=== PATIENT | female | born 1980 | race Two or more races ===

== ENCOUNTER 2019-10-20 10:30 | Inpatient (IN) | payer OTHER ==
[2019-10-20 12:18] VITALS: BMI 29.0
[2019-10-20] MEDS ORDERED: ELECTROLYTE-148 SOLN 500 ML IV ONE (14:25)
[2019-10-20] MEDS ORDERED: CITRIC ACID/SODIUM CITRATE 30 ML UNIT-DOSE CUP PO ONE (14:25)
[2019-10-20] MEDS ORDERED: ELECTROLYTE-148 SOLN 1,000 ML IV SCH (14:30)
--- NOTE | 2019-10-20 14:31 | HP ---
Past Medical History - Admission Chief Complaint: PRIMATY LT C S History of Present Illness: none History Source: Patient Limitations to Obtaining History: No Limitations - Past Medical History FLIGHT AGENT: No: Alzheimer's, CVA, Dementia, Migraine, Multiple Sclerosis, Peripheral Neuropathy, Parkinson's, Seizure, Syncope, TIA, Vertigo, Other Cardiovascular: No: AFIB, Aneurysm, Aortic Insufficiency, Aortic Stenosis, CAD, CHF, Deep Vein Thrombosis, HTN, Hyperlipdemia, ID, Mitral Insufficiency, Mitral Stenosis, Murmur, Pulmonary Hypertension, Other Pulmonary: No: Asthma, Bronchitis, Cancer, COPD, O2 Dependent, Pneumonia, Previously Intubated, Pulmonary Embolus, Pulmonary Fibrosis, Sleep Apnea, Other Gastrointestinal: No: Ascites, Cancer, Constipation, Crohn's Disease, Diverticulitis, Diverticulosis, Esophageal Varices, Gastritis, GERD, GI Bleed, Hemorrhoids, Hiatal Hernia, Inflamatory Bowel Disease, Irritable Bowel Disease, Pancreatitis, Peptic Ulcer Disease, Ulcerative Colitis, Other Hepatobiliary: No: Cirrhosis, Cholelithiasis, Cholecystitis, Choledocholithiasis, Hepatitis A, Hepatitis B, Hepatitis C, Other Renal/: No: Renal Failure, Renal Inusuff, BPH, Cancer, Hematuria, Hemodialysis, Neurogenic Bladder, Renal Calculi, UTI, Other Reproductive: No: Ectopic , Endometriosis, Fibroids, PID, Polycystic Ovary Syndrome, Postmenopausal, Other ...: 1 ...Para: 0 ...Term: 0 ...: 0 ...Spon : 0 ...Induced : 0 ...Living Children: 0 ...Multiple Gestation: 0 ...EDC by Reinier: 10/23/19 Heme/Onc: No: Anemia, B12 Deficiency, Bleeding Disorder, Cancer, Current Chemoth erapy, Current Radiation Therapy, Hemochromatosis, Hypercoaguable State, Myeloproliferative Synd, Sickle Cell Disease, Sickle Cell Trait, Thrombocytopenia, Other Infectious Disease: No: AIDS, C-Diff, Herpes Zoster, HIV, MRSA, STD's, Tuberculosis, VREF, Other Psych: No: Addictions, Anxiety, Bipolar, Depression, Panic, Psychosis, Schizophrenia, Other Musculoskeletal: No: Bursitis, Chronic low back pain, Hemiparesis, Hemiplegia, Osteoarthritis, Paraplegia, Other Rheumatology: No: Fibromyalgia, Gout, Lupus, Rheumatoid Arthritis, Sarcoidosis, Vasculitis, Other ENT: No: Allergic Rhinitis, Sinusitis, Other Endocrine: No: Gregory's Disease, Yessica's Disease, Diabetes Insipidus, Diabetes Mellitus, Hyperparathyroidism, Hyperthyroidism, Hypothyroidism, Osteopenia, SIADH, Other Dermatology: No: Basal Cell, Cellulitis, Eczema, Melanoma, Psoriasis, Squamous Cell, Other - Past Surgical History Past Surgical History: No: None, AAA Repair, AICD, Amputation, Appendectomy, Arthrosocopy, AV Fistula/Graft, Bariatric Surgery, Breast Biopsy, Bypass, CABG, Carotid Endarterectomy, Cataract Removal, Cholecystectomy, Colectomy, Colonoscopy, Colostomy, Craniotomy, , Cystectomy, Hernia Repair, Hysterectomy, Ileal Conduit, Ileosotomy, Joint Replacement, Kidney Transplant, Laminectomy, Liver Transplant, Mastectomy, Nephrectomy, Oopherectomy, Orchiectomy, Permanent Pacemaker, Prostatectomy, Splenectomy, Stent, Thoracotomy, TURP, Tonsillectomy, Tubal Ligation, Upper Endoscopy, Valve Replacement, Vasectomy, Vein Stripping/Ligation Hx Myomectomy: No Hx Transabdominal Cerclage: No - Advance Directives Advance Directives: Yes: Living Will - Smoking History Smoking history: Never smoked Have you smoked in the past 12 months: No - Alcohol/Substance Use Hx Alcohol Use: No History of Substance Use: reports: None - Social History Usual Living Arrangement: Yes: With Significant Other Do you think of yourself as: Straight/Heterosexual ADL: Independent History of Recent Travel: No Home Medications - Allergies Allergies/Adverse Reactions: Allergies Allergy/AdvReac Type Severity Reaction Status Date / Time No Known Allergies Allergy Verified 10/20/19 11:30 - Home Medications Home Medications: Ambulatory Orders Pnv No.95/Ferrous Fum/Folic AC [ Formula] 1 each PO DAILY 10/20/19 Family Medical History Family History: Denies Review of Systems - Review of Systems Constitutional: reports: No Symptoms Eyes: reports: No Symptoms HENT: reports: No Symptoms Neck: reports: No Symptoms Cardiovascular: reports: No Symptoms Respiratory: reports: No Symptoms Gastrointestinal: reports: No Symptoms Genitourinary: reports: No Symptoms Breasts: reports: No Symptoms Reported Musculoskeletal: reports: No Symptoms Integumentary: reports: No Symptoms Neurological: reports: No Symptoms Endocrine: reports: No Symptoms Hematology/Lymphatic: reports: No Symptoms Psychiatric: reports: No Symptoms Physical Exam - Maternity Vital Signs: Vital Signs Temperature 98.1 F 10/20/19 11:30 Pulse Rate 87 10/20/19 11:30 Respiratory Rate 18 10/20/19 11:30 Blood Pressure 112/77 10/20/19 11:30 O2 Sat by Pulse Oximetry (%) 96 10/20/19 10:30 Constitutional: Yes: Well Nourished, No Distress, Calm Eyes: Yes: WNL, Conjunctiva Clear, EOM Intact HENT: Yes: WNL, Atraumatic, Normocephalic Neck: Yes: WNL, Supple, Trachea Midline Cardiovascular: Yes: WNL, Regular Rate and Rhythm Lungs: Clear to auscultation Breast(s): Yes: WNL - Abdominal Exam/OB Number of Fetuses: Single Presentation: Vertex Contractions: Yes Regularity: Irregular Intensity: Mild Monitor Mode: External Heart Rate (range): 150 Heart Rate Location: [facility] Category: I Accelerations: Uniform Decelerations: None - Vaginal Exam/OB Vaginal Bleeding: No Speculum Exam: No Dilatation (cm): 1 Effacement (%): 60 Amniotic Membrane Status: Intact Amniotic Fluid: Yes: Clear Presentation: Vertex/Position Station: -2 - Physical Exam Musculoskeletal: Yes: WNL Extremities: Yes: WNL Edema: Yes Edema: LUE: 1+, RUE: 1+, LLE: 1+, RLE: 1+ Integumentary: Yes: WNL Deep Tendon Reflex Grade: Normal +2 ...Motor Strength: WNL Psychiatric: Yes: WNL, Alert, Oriented Hemorrhage Risk Assessment - Risk Factors Medium Risk Factors: Yes: None High Risk Factors: Yes: None Risk Score: 1 Risk Level: Medium Risk Assessment/Plan for primary lt c s , low lyning placenta
[2019-10-20] MEDS ORDERED: morphine SULFATE/PF 0.5 MG/ML (2cc Syringe - QUVA) ONE (14:38)
[2019-10-20] MEDS ORDERED: DEXAMETHASONE SOD PHOSPHATE 4 MG/1 ML VIAL ONE (14:38)
[2019-10-20] MEDS ORDERED: ceFAZolin SODIUM 1 GM VIAL ONE (14:38)
[2019-10-20] MEDS ORDERED: PHENYLEPHRINE HCL 10 MG/1 ML SINGLE DOSE VIAL ONE (14:41)
[2019-10-20] MEDS ORDERED: OXYTOCIN 10 UNITS/ML VIAL ONE (15:07)
[2019-10-20] MEDS ORDERED: MIDAZOLAM HCL 2 MG/2 ML SINGLE DOSE VIAL ONE (15:19)
[2019-10-20] MEDS ORDERED: KETOROLAC TROMETHAMINE 30 MG/1 ML VIAL ONE (15:27)
[2019-10-20] MEDS ORDERED: ONDANSETRON 4 MG/2 ML VIAL IVPUSH PRN (15:37)
[2019-10-20] MEDS ORDERED: ACETAMINOPHEN 1000 MG/100 ML VIAL (NON FORMULARY) IVPB PRN (15:38)
[2019-10-20] MEDS ORDERED: METHYLERGONOVINE MALEATE 0.2 MG/1 ML AMP IM PRN (16:02)
[2019-10-20] MEDS ORDERED: IBUPROFEN 800 MG/8 ML IJ IVPB PRN (16:02)
[2019-10-20] MEDS ORDERED: oxyCODONE HCL 5 MG TABLET PO PRN ×2 (16:02)
--- NOTE | 2019-10-20 16:08 | OP ---
Operative Note - Note: Operative Date: 10/20/19 Pre-Operative Diagnosis: low lying placenta , anterior Operation: primary lt c s Findings: anterior placenta Post-Operative Diagnosis: Same as Pre-op Surgeon: Toro Mcleod Telesales Manager: Shaheed Degroot Anesthesiologist/[employer] TEACHER: Kaci Aiken Anesthesia: Spinal Estimated Blood Loss (mls): 800 (no complications ) Operative Report Dictated: Yes
[2019-10-20] MEDS ORDERED: ACETAMINOPHEN INJECTION 100 ML IVPB ONE (16:41)
[2019-10-20] MEDS ORDERED: OXYTOCIN 20 UNITS in 0.9% NS 20 UNIT/1,000 ML INFUS.BAG IV ONE (16:41)
[2019-10-20] MEDS: OXYTOCIN 20 UNITS in 0.9% NS 20 UNIT/1,000 ML INFUS.BAG IV SCH ×2 (16:45→21:51)
--- NOTE | 2019-10-20 18:13 | OP ---
DATE OF OPERATION: 10/20/2019 PREOPERATIVE DIAGNOSIS: Low-lying placenta. POSTOPERATIVE DIAGNOSIS: Anterior low-lying placenta. PROCEDURE: Primary low transverse section. SURGEON: Toro Mcleod MD PROOF COINS INSPECTOR: OTTO Hernandez ANESTHESIOLOGIST: MALI Nettles ANESTHESIA: Spinal. INDICATION: This is a 39-year-old female patient with history of a low-lying placenta. Patient's baby was in a breech presentation throughout the whole until about 2 to 3 weeks ago, and the low-lying placenta still did not improve. Patient was explained fully, and the patient understood and did not want any complications with vaginal bleeding during the delivery time; so, patient chose to have a primary low transverse section. All the risks, benefits, and alternatives explained to the patient. DESCRIPTION OF PROCEDURE: Patient was taken to the OR, placed on the operating table in supine position. After spinal anesthesia was obtained, the patient's abdomen and pelvis were prepped and draped in the usual sterile manner. Pfannenstiel incision was made. Incision was made through skin and subcutaneous tissue until the fascia was nicked in the midline. The fascia extended bilaterally. Intraperitoneal cavity was entered. Bladder flap was created. Low-transverse segment of the uterus was entered. Baby was delivered from the LOT position. Anterior placenta was then encountered. When the placenta was removed encountered. So, baby delivered from the LOT position. Then, the umbilical cord doubly clamped and cut. Placenta was removed. Uterus closed in single layer, first layer interlocking Vicryl sutures. Good hemostasis. Both gutters cleaned. Both ovaries, fallopian tubes, and uterus were within normal limits. No complications. Draining clear urine. Blood loss about 800 mL. Patient tolerated the procedure well, transferred to recovery room in stable condition. MD NATHANIEL ROMAN/[id number]
[2019-10-21] MEDS: OXYTOCIN 20 UNITS in 0.9% NS 20 UNIT/1,000 ML INFUS.BAG IV SCH (05:43)
[2019-10-21 09:18] LABS: BASO % 0.2 % (0-2.0); EOS % 0.1 % (0-4.5); HEMATOCRIT 33.4 % (32.4-45.2); HEMOGLOBIN 11.4 GM/dL (10.7-15.3); MCH 35.2 pg (25.7-33.7); MCHC 34.3 g/dl (32.0-36.0); MEAN CELL VOLUME 102.8 fl (80-96); MONO % 3.3 % (3.8-10.2); NEUT % 87.4 % (42.8-82.8); PLATELET COUNT 203 K/MM3 (134-434); RBC 3.25 M/mm3 (3.60-5.2); RDW 13.4 % (11.6-15.6); WHITE BLOOD COUNT 12.5 K/mm3 (4.0-10.0)
[2019-10-21] MEDS ORDERED: BISACODYL 10 MG SUPP.RECT RC PRN (16:02)
[2019-10-21] MEDS: ACETAMINOPHEN 325 MG TABLET (FP) PO PRN ×2 (16:23→21:43)
[2019-10-21] MEDS: IBUPROFEN 600 MG TABLET (FP) PO PRN ×2 (16:24→21:42)
[2019-10-21] MEDS: SIMETHICONE 80 MG TAB.CHEW (FP) PO PRN (16:25)
--- NOTE | 2019-10-21 20:37 | PN ---
Post Progress Note Post Day: 1 Type of Delivery: Primary C/S Vital Signs: Vital Signs Temperature 98.1 F 10/21/19 14:00 Pulse Rate 89 10/21/19 14:00 Respiratory Rate 20 10/21/19 16:00 Blood Pressure 101/61 10/21/19 14:00 O2 Sat by Pulse Oximetry (%) 100 10/21/19 14:00 Breast Exam: Yes: Soft Uterus: Yes: Fundus Firm, Fundus below umbilicus, Non-tender Incision: Yes: Dressing dry and intact, Sutures intact Abdomen/GI: Yes: Abdomen soft, Passing flatus, Tolerating PO Lochia, amount: Small Extremities: Yes: Calves non-tender Perineum: Yes: Intact Activity: Ambulating (doing well, possible dc pt home tomorrow ) - Labs Labs: CBC WBC 12.5 K/mm3 (4.0-10.0) H 10/21/19 08:40 RBC 3.25 M/mm3 (3.60-5.2) L 10/21/19 08:40 Hgb 11.4 GM/dL (10.7-15.3) 10/21/19 08:40 Hct 33.4 % (32.4-45.2) 10/21/19 08:40 MCV 102.8 fl (80-96) H 10/21/19 08:40 MCH 35.2 pg (25.7-33.7) H 10/21/19 08:40 MCHC 34.3 g/dl (32.0-36.0) 10/21/19 08:40 RDW 13.4 % (11.6-15.6) 10/21/19 08:40 Plt Count 203 K/MM3 (134-434) 10/21/19 08:40 MPV 7.0 fl (7.5-11.1) L 10/21/19 08:40 Absolute Neuts (auto) 10.9 K/mm3 (1.5-8.0) H 10/21/19 08:40 Neutrophils % 87.4 % (42.8-82.8) H 10/21/19 08:40 Lymphocytes % 9.0 % (8-40) D 10/21/19 08:40 Monocytes % 3.3 % (3.8-10.2) L 10/21/19 08:40 Eosinophils % 0.1 % (0-4.5) D 10/21/19 08:40 Basophils % 0.2 % (0-2.0) 10/21/19 08:40 Nucleated RBC % 0 % (0-0) 10/21/19 08:40
[2019-10-21] MEDS: SENNOSIDES/DOCUSATE COMBO (SENNA PLUS) TABLET (UD) PO PRN (21:45)
[2019-10-22] MEDS: IBUPROFEN 600 MG TABLET (FP) PO PRN ×3 (09:25→20:14)
[2019-10-22] MEDS: ACETAMINOPHEN 325 MG TABLET (FP) PO PRN ×3 (09:27→20:13)
--- NOTE | 2019-10-22 10:41 | PN ---
Post Progress Note Post Day: 2 Type of Delivery: Primary C/S Vital Signs: Vital Signs Temperature 98.1 F 10/21/19 22:00 Pulse Rate 83 10/21/19 22:00 Respiratory Rate 18 10/21/19 22:00 Blood Pressure 106/66 10/21/19 22:00 O2 Sat by Pulse Oximetry (%) 100 10/21/19 14:00 Breast Exam: Yes: Soft Uterus: Yes: Fundus Firm, Fundus below umbilicus, Non-tender Incision: Yes: Dressing dry and intact, Sutures intact Abdomen/GI: Yes: Abdomen soft, Passing flatus, Tolerating PO Lochia: Yes: Serosa Lochia, amount: Small Extremities: Yes: Calves non-tender Perineum: Yes: Intact Activity: Ambulating (bsby has jaundice, will dc pt home tomorrow ) - Labs Labs: CBC WBC 12.5 K/mm3 (4.0-10.0) H 10/21/19 08:40 RBC 3.25 M/mm3 (3.60-5.2) L 10/21/19 08:40 Hgb 11.4 GM/dL (10.7-15.3) 10/21/19 08:40 Hct 33.4 % (32.4-45.2) 10/21/19 08:40 MCV 102.8 fl (80-96) H 10/21/19 08:40 MCH 35.2 pg (25.7-33.7) H 10/21/19 08:40 MCHC 34.3 g/dl (32.0-36.0) 10/21/19 08:40 RDW 13.4 % (11.6-15.6) 10/21/19 08:40 Plt Count 203 K/MM3 (134-434) 10/21/19 08:40 MPV 7.0 fl (7.5-11.1) L 10/21/19 08:40 Absolute Neuts (auto) 10.9 K/mm3 (1.5-8.0) H 10/21/19 08:40 Neutrophils % 87.4 % (42.8-82.8) H 10/21/19 08:40 Lymphocytes % 9.0 % (8-40) D 10/21/19 08:40 Monocytes % 3.3 % (3.8-10.2) L 10/21/19 08:40 Eosinophils % 0.1 % (0-4.5) D 10/21/19 08:40 Basophils % 0.2 % (0-2.0) 10/21/19 08:40 Nucleated RBC % 0 % (0-0) 10/21/19 08:40
--- NOTE | 2019-10-22 10:44 | DS ---
Physical Exam-INSPECTOR RAG SORTING Vital Signs: Vital Signs Temperature 98.1 F 10/21/19 22:00 Pulse Rate 83 10/21/19 22:00 Respiratory Rate 18 10/21/19 22:00 Blood Pressure 106/66 10/21/19 22:00 O2 Sat by Pulse Oximetry (%) 100 10/21/19 14:00 Constitutional: Yes: Well Nourished, No Distress, Calm Eyes: Yes: WNL, Conjunctiva Clear, EOM Intact HENT: Yes: WNL, Atraumatic, Normocephalic Neck: Yes: WNL, Supple, Trachea Midline Cardiovascular: Yes: WNL, Regular Rate and Rhythm Respiratory: Yes: WNL, Regular, CTA Bilaterally Gastrointestinal: Yes: WNL, Normal Bowel Sounds, Soft ...Rectal Exam: Yes: WNL Renal/: Yes: WNL Pelvis: Yes: WNL External Genitalia: Yes: Normal Internal Exam Deferred: Yes Vaginal Exam: Yes: Normal Cervix: Yes: Normal Uterus: Yes: Normal Adnexa: Normal: Bilateral ....Post : Yes: Uterus firm, Uterus non-tender Breast(s): Yes: WNL Musculoskeletal: Yes: WNL Extremities: Yes: WNL Edema: Yes Edema: LUE: 1+, RUE: 1+, LLE: 1+, RLE: 1+ Integumentary: Yes: WNL Wound/Incision: Yes: Clean/Dry, Well Approximated Neurological: Yes: WNL, Alert, Oriented ...Motor Strength: WNL Psychiatric: Yes: WNL, Alert, Oriented Labs: CBC, BMP 10/21/19 08:40 Delivery - Delivery Section: Primary Type of Anesthesia: Spinal Episiotomy/Laceration: None EBL (cc): 800 Delivery, Single - Stages of Labor Date of Delivery: 10/20/19 Time of Delivery: 15:13 Time Placenta Delivered: 15:14 - Condition of Infant Strategic Sourcing Specialist/Weight Reducing Technician Present: Yes Name: Miriam Elmore Infant Gender: Female Weight: 3.317 kg Position: Left, OT Total Hours ROM (Hrs/Mins): 3mins - 1 Minute Total Score: 9 5 Minutes Total Score: 9 - [place] Feeding Plan Initial Plan: Elected not to breastfeed exclusively throughout hospitalization Discharge Summary Problems reviewed: Yes low lying placenta, anterior Procedures: Principal: primary lt c s Other Procedures: none Hospital Course: uneventful Condition: Good - Instructions Diet, Activity, Other Instructions: Physical activity Resume your normal everyday activity as tolerated no heavy lifting or exercise until seen by your surgeon. You may walk unlimited johnna of and climb stairs. You may resume driving the car when you feel safe and comfortable behind the wheel. No sexual activity as instructed. Wound care If you have a bandage, leave it on, and keep dry for 48-72 hours. After that time discard the outer bandage. If they are tapes on the skin under the out of bandage leave them in place. They will peel off in the next 7 to 10 days. Do Not Peel them off. You may shower the day after surgery. If there are tapes present on the skin, you may shower over them. Diet There are no dietary restrictions. Eat healthy, high-fiber foods. Drink 6 to 8 glasses of liquid each day. This will assist in keeping your bowels are regular. Pain management You may take Tylenol or acetaminophen or Ibuprofen (for example, Motrin, Advil etc.) from my pain prescription medication is ordered should be taken as prescribed for moderate to severe pain. Call MD for any of the following: call dr uribe for 2 weeks appointment Severe pain not relieved by medication Fever of 101 or higher Excessive bleeding or drainage on dressing Inability to urinate Disposition: HOME - Home Medications Comprehensive Discharge Medication List: Ambulatory Orders Pnv No.95/Ferrous Fum/Folic AC [ Formula] 1 each PO DAILY 10/20/19 Prescription Drug Monitoring Program (I-STOP) results: I-STOP reviewed and no issues identified
[2019-10-22] MEDS: SIMETHICONE 80 MG TAB.CHEW (FP) PO PRN ×2 (11:31→20:11)
[2019-10-22] MEDS: SENNOSIDES/DOCUSATE COMBO (SENNA PLUS) TABLET (UD) PO PRN (22:18)
[2019-10-23] MEDS: ACETAMINOPHEN 325 MG TABLET (FP) PO PRN ×2 (05:56→10:37)
[2019-10-23] MEDS: IBUPROFEN 600 MG TABLET (FP) PO PRN ×2 (05:57→10:38)
[2019-10-23] MEDS: SIMETHICONE 80 MG TAB.CHEW (FP) PO PRN ×2 (05:58→10:38)
--- NOTE | 2019-10-23 07:49 | PN ---
Post Progress Note Post Day: 3 Type of Delivery: Primary C/S Vital Signs: Vital Signs Temperature 98.4 F 10/22/19 22:00 Pulse Rate 94 H 10/22/19 22:00 Respiratory Rate 18 10/22/19 22:00 Blood Pressure 129/82 10/22/19 22:00 O2 Sat by Pulse Oximetry (%) 100 10/22/19 10:00 Breast Exam: Yes: Soft Uterus: Yes: Fundus Firm Incision: Yes: Dressing dry and intact, Sutures intact Abdomen/GI: Yes: Abdomen soft, Passing flatus, Tolerating PO Lochia: Yes: Serosa Lochia, amount: Small Extremities: Yes: Calves non-tender, Calf tenderness Activity: Ambulating (dc pt home today ) - Labs Labs: CBC WBC 12.5 K/mm3 (4.0-10.0) H 10/21/19 08:40 RBC 3.25 M/mm3 (3.60-5.2) L 10/21/19 08:40 Hgb 11.4 GM/dL (10.7-15.3) 10/21/19 08:40 Hct 33.4 % (32.4-45.2) 10/21/19 08:40 MCV 102.8 fl (80-96) H 10/21/19 08:40 MCH 35.2 pg (25.7-33.7) H 10/21/19 08:40 MCHC 34.3 g/dl (32.0-36.0) 10/21/19 08:40 RDW 13.4 % (11.6-15.6) 10/21/19 08:40 Plt Count 203 K/MM3 (134-434) 10/21/19 08:40 MPV 7.0 fl (7.5-11.1) L 10/21/19 08:40 Absolute Neuts (auto) 10.9 K/mm3 (1.5-8.0) H 10/21/19 08:40 Neutrophils % 87.4 % (42.8-82.8) H 10/21/19 08:40 Lymphocytes % 9.0 % (8-40) D 10/21/19 08:40 Monocytes % 3.3 % (3.8-10.2) L 10/21/19 08:40 Eosinophils % 0.1 % (0-4.5) D 10/21/19 08:40 Basophils % 0.2 % (0-2.0) 10/21/19 08:40 Nucleated RBC % 0 % (0-0) 10/21/19 08:40
[2019-10-23 12:10] VITALS: BP 117/76; PULSE 80; TEMP 98.8
--- NOTE | 2019-10-24 15:37 | PATH ---
Surgical Pathology Report Patient Name: MARY PAPPAS Med. Rec. #: [id number] /Age/Gender: 1980 (Age: 39) / F Account: [id number] Location: [facility] OBS/MEDIUM CYCLE SALESPERSON Taken: 10/20/2019 Received: 10/23/2019 Reported: 10/24/2019 Physicians: Toro Mcleod MD Specimen(s) Received PLACENTA Clinical History , 39.4 weeks, primary Final Diagnosis PLACENTA, SECTION: 524 G THIRD TRIMESTER PLACENTA WITH SEVERE ACUTE CHORIOAMNIONITIS. TRIVASCULAR UMBILICAL CORD WITH PANVASCULITIS AND ASSOCIATED FUNISITIS. Electronically Signed Roxana Lundberg M.D. Gross Description The specimen is received fresh labeled placenta and is a 524 gram, 19.0 x 16.0 x 2.3 cm. placenta with attached membranes and umbilical cord. The attached membranes are durant, translucent with focal opacities and insert marginally. The umbilical cord measures 28 cm. in length and averages 1.1 cm. in diameter. The cord inserts eccentrically, 4.5 cm. to the nearest margin. No true knots or strictures are identified. Cut surface of the umbilical cord reveals 3 vessels. The surface is jenkins blue with moderate fibrin deposition and appropriate caliber vessels. The maternal surface is red-brown with focal defects. Sectioning reveals red-brown, spongy parenchyma. No lesions are identified. Crap Game Box Person sections are submitted in three cassettes as follows: 1- membrane rolls and umbilical cord; 2-3- full thickness sections of placenta. /10/23/2019 [facility]10/23/2019
== END 2019-10-23 13:45 | disposition home or self-care (01) | DRG 540 ==
LOC: JLDR 10:30 → J3N 18:16 → J3W 10-21 17:27
PROVIDERS: ADMIT Obstetrics & Gynecology; ATTEND Obstetrics & Gynecology
PROC: 10D00Z1 Extraction of Products of Conception, Low, Open Approach (ICD-10-PCS; principal; 2019-10-20)
DX: O82 Encounter for cesarean delivery without indication (principal); O44.43 Low lying placenta NOS or without hemorrhage, third trimester; Z3A.39 39 weeks gestation of pregnancy; Z37.0 Single live birth
CPT/HCPCS: 36415; 85025; 88307-TC; 94010; J0131